=== PATIENT | female | born 1990 | race Hispanic/Latino ===

== ENCOUNTER 2023-06-18 09:09 | Observation (INO) | payer MEDICAID ==
[~2023-06-18] VITALS: Ht 152.4 cm; Wt 62.6 kg
[2023-06-18 09:13] VITALS: BP 115/70; PULSE 85; RESP 16; O2SAT 100
[2023-06-18 09:50] LABS: APPEARANCE,URINE CLEAR (CLEAR); BILIRUBIN,URINE NEGATIVE (NEGATIVE); COLOR,URINE LIGHT-YELLOW (YELLOW); GLUCOSE, URINE (UA) NEGATIVE (NEGATIVE); KETONES,URINE NEGATIVE (NEGATIVE); LEUKOCYTE ESTERASE ,URINE 500 Leu/uL (NEGATIVE); NITRATE,URINE NEGATIVE (NEGATIVE); OCCULT BLOOD,URINE NEGATIVE (NEGATIVE); PH,URINE 6.5 (5.0-8.0); PROTEIN,URINE NEGATIVE (NEGATIVE); UROBILINOGEN,URINE 0.2 mg/dL (0.2-1.0)
[2023-06-18 09:52] LABS: ADD UA MICROSCOPIC YES
[2023-06-18 09:56] LABS: BACTERIA,URINE RARE /HPF (None Seen); MUCUS,URINE RARE LPF (None Seen); SQUAMOUS EPITHELIAL CELL,UR FEW /HPF (0-2); TRICHOMONAS,URINE FEW /LPF (None Seen)
[2023-06-18] MEDS ORDERED: LACTATED RINGERS 1000ML 1,000 ML IV SCH (10:30)
== END 2023-06-18 11:27 | disposition home or self-care (01) ==
LOC: EDH 09:09 → LDH 09:10 → EDH 09:15
PROVIDERS: ADMIT Obstetrics & Gynecology; ATTEND Obstetrics & Gynecology
DX: O26.893 Other specified pregnancy related conditions, third trimester (principal); R10.30 Lower abdominal pain, unspecified; Z3A.33 33 weeks gestation of pregnancy
CPT/HCPCS: 96360; 87088; 81001; G0378 ×2; G0379; J7120